=== PATIENT | male | born 2000 | race Two or more races ===

== ENCOUNTER 2018-05-02 13:38 | Day surgery (SDC) | payer OTHER ==
[~2018-05-02 13:38] MED LIST: ACETAMINOPHEN 0 MG/0 ML RTUPB IV ONE; BUPIVACAINE HCL 0.5 % INJ/PF 30 ML SDV ONE; CEFAZOLIN 2 GM/D5W RTU 2 GM/50 ML RTUPB IV PRN; DEXAMETHASONE SOD PHOSPHATE INJ 4 MG/1 ML VIAL ONE; FENTANYL CITRATE INJ/PF 100 MCG/2 ML AMPUL ONE; MIDAZOLAM 2 MG/2 ML INJ ONE; ONDANSETRON HCL INJ/PF 4 MG/2 ML SDV ONE; PROPOFOL INJ 200 MG/20 ML VIAL IV ONE
[2018-05-02] MEDS ORDERED: CEFAZOLIN 2 GM/D5W RTU 2 GM/50 ML RTUPB IV ONE (13:56)
[2018-05-02] MEDS ORDERED: CEFAZOLIN SODIUM 2 GM in DEXTROSE 5%-WATER 100 ML IV PRN (14:03)
[2018-05-02] MEDS ORDERED: ONDANSETRON HCL INJ/PF 4 MG/2 ML SDV ONE (16:15)
[2018-05-02] MEDS ORDERED: MIDAZOLAM 2 MG/2 ML INJ ONE (16:15)
[2018-05-02] MEDS ORDERED: DEXAMETHASONE SOD PHOSPHATE INJ 4 MG/1 ML VIAL ONE (16:15)
[2018-05-02] MEDS ORDERED: HYDROMORPHONE HCL INJ/PF 2 MG/ML AMPULE ONE (16:15)
[2018-05-02] MEDS ORDERED: FENTANYL CITRATE INJ/PF 100 MCG/2 ML AMPUL ONE (16:15)
[2018-05-02] MEDS ORDERED: PROPOFOL INJ 200 MG/20 ML VIAL IV ONE (16:16)
[2018-05-02] MEDS ORDERED: ACETAMINOPHEN 1,000 MG/100 ML RTUPB IV ONE (16:16)
[2018-05-02] MEDS ORDERED: FENTANYL CITRATE INJ/PF 100 MCG/2 ML AMPUL IV PRN ×3 (17:20)
[2018-05-02] MEDS ORDERED: PROMETHAZINE HCL INJ 25 MG/1 ML VIAL IV PRN ×2 (17:20)
[2018-05-02] MEDS ORDERED: ONDANSETRON HCL INJ/PF 4 MG/2 ML SDV IV PRN ×2 (17:20→18:07)
[2018-05-02] MEDS ORDERED: MORPHINE SULFATE 10 MG/ML INJ IV PRN ×2 (17:20→18:07)
[2018-05-02] MEDS ORDERED: OXYCODONE-ACETAMINOPHEN 5-325 MG TABLET PO PRN ×3 (17:20→18:07)
[2018-05-02] MEDS ORDERED: MEPERIDINE HCL/PF INJ 25 MG/1 ML DISP.SYRIN IV PRN (17:20)
[2018-05-02] MEDS ORDERED: DIPHENHYDRAMINE HCL 50 MG/ML VIAL IV PRN (17:20)
--- NOTE | 2018-05-02 18:07 | Discharge Summary ---
Discharge Summary (SDC) - Discharge Final Diagnosis: Right fifth metacarpal neck fracture Right fourth metacarpal base fracture Date of Surgery: 05/02/18 Discharge Date: 05/02/18 Condition: Good Forms: ASU Anesthesia D/C Instruction, Discharge POC-Surgical Service Treatment or Instructions: Schedule Follow Up w/ Dr. Ross Angeles @ [facility] for Surgery to be seen in 10-14 days or as scheduled [place]: [place]: [place]: Ice and elevate Keep splint clean/dry/intact. If your fingers become numb please unwrap the René wrap but leave the splint in place, if the sensation does not return within 30 minutes please return to the emergency department. May begin finger range of motion attempting to make full fist. Please use ibuprofen (Motrin or Advil) 600-800 mg every 8 hours as needed for pain or fever DO NOT TAKE w/ TORADOL may use once TORADOL complete. You may also use acetaminophen (Tylenol) 1000 mg every 4-6 hours as needed for pain or fever. Please be aware that many medications contain acetaminophen, do not exceed a total of 1000 mg of acetaminophen every 6 hours. If ibuprofen and acetaminophen are not sufficient for your pain you may take the Percocet/[place]. Please be aware that the Percocet/[place] does contain Tylenol. Stool softener of choice when on pain medication. USE OF [id number] IBUPROFEN: Ibuprofen (Advil, Nuprin, Medipren, Motrin IB) is a medication for fever and pain control. In addition, it has anti- inflammatory effects which may be beneficial, especially in the treatment of injuries. It's best to take ibuprofen with food. Persons with ulcer disease or allergy to aspirin should notify their physician of this before taking ibuprofen. Ibuprofen can be given every four to six hours, for a total of four doses daily. Age Pain or fever dose Antiinflammatory dose 6-8 yr 200 mg (1 tab) 200 mg (1 tab) 9-11 yr 200 mg (1 tab) 200-400 mg (1-2 tab) 11-14 yr 200-400 mg (1-2 tab) 400 mg (2 tab) 15-adult 400 mg (2 tab) 600 mg (3 tab) ORAL NARCOTIC MEDICATION: You have been given a prescription for pain control. This medication is a narcotic. It's best taken with food, as nausea can result if taken on an empty stomach. Don't operate machinery or drive within six hours of taking this medication. Do not combine this medicine with alcohol, or with any medication which can cause sedation (such as cold tablets or sleeping pills) unless you get permission from the physician. Narcotics tend to cause constipation. If possible, drink plenty of fluids and eat a diet high in fiber and fruits. Please be aware that prescription narcotics also have the potential for abuse. People become addicted to these medications because of the general sense of wellbeing that they induce. This feeling along with a significant reduction in tension, anxiety, and aggression provides a stimulating seductive quality to these drugs. Once your pain is under control, we encourage you to discard your unused narcotics. Prescriptions: Ketorolac Tromethamine [Toradol 10 mg Tablet] 10 mg PO Q8HP PRN #12 tablet PRN Reason: Oxycodone HCl/Acetaminophen [Percocet 5-325 mg Tablet] 1 tab PO Q6 PRN #25 tab PRN Reason: Referrals: ROSS ANGELES DO [ACTIVE STAFF] - 05/15/18 2:10 pm Discharge Diet: As Tolerated Respiratory Treatments at Home: Deep Breathing/Coughing Discharge Activity: No Lifting Over 10 Pounds, No Lifting/Push/Pulling Report the Following to Your Physician Immediately: Fever over 101 Degrees, Unusual Bleeding, Redness, Swelling, Warmth, Increased Soreness
--- NOTE | 2018-05-02 18:12 | Operative Report ---
Operative Report PREOPERATIVE DIAGNOSIS: Right fifth metacarpal neck fracture, fourth metacarpal base fracture POSTOPERATIVE DIAGNOSIS: Same OPERATION: 1. ORIF fifth metacarpal neck fracture. 2. ORIF fourth metacarpal base fracture SURGEON: MISAEL ANGELES ANESTHESIA: GA COMPLICATIONS: None ESTIMATED BLOOD LOSS: Minimal PROCEDURE: Indication for above procedure: 18-year-old male who sustained fractures of his fourth metacarpal base and fifth metacarpal neck. This was treated conservatively with closed reduction and casting originally radiographs demonstrate acceptable alignment however after 2 weeks there was loss of reduction at that point decision was made to proceed with operative intervention. I discussed risks and benefits of the surgical procedure patient verbalized understanding consented for the procedure. Procedure In Detail: Patient was seen and evaluated in the preoperative holding area. The RIGHT upper extremity was initialized and marked. Patient received 2g of Ancef IV for bacterial prophylaxis. Patient was taken back to the operative room where transferred to the operative table and placed under general anesthesia. Once they were adequately anesthetized a nonsterile tourniquet was placed on the upper extremity. A surgical team debriefing was performed ensuring all instrumentation was available, the surgical procedure was discussed with possible concerns reviewed. The upper extremity was prepped with chlorhexidine and alcohol and draped in a sterile fashion. A timeout was done identifying correct patient, procedure and extremity everyone in attendance agree with this and verbalized no concerns. The extremity was exsanguinated the tourniquet was inflated to 250 mmHg. Longitudinal skin incision was made along the MCP joint. The extensor mechanism was then split midline and metacarpal head exposed. With a Jahss maneuver the fifth metacarpal neck was reduced restoring previous height. K wire for a Exos med metacarpal screw was placed through the dorsal third of the metacarpal head past the fracture site. Measuring device confirmed a 40 mm screw. The 4.5 mm x 40 mm Exomed metacarpal screw was placed which provided adequate stability of the fracture site with roman catholic of height no residual angulation. Any peripheral veins were coagulated with bipolar cautery. Wound was copiously irrigated with normal saline. The extensor mechanism was closed with interrupted 3-0 Vicryl suture. Skin was closed with running horizontal mattress 4-0 nylon suture. Longitudinal skin incision was made along the fourth metacarpal base. Blunt dissection was performed. Branches of the dorsal ulnar sensory nerve were identified and retracted. The dorsal interossei was then split and periosteal elevation was performed over the fracture site. Any intervening healing hematoma/callus was excised. The fracture was then reduced under direct visualization. A 1.7 mm interfragmentary screw was placed perpendicular to the fracture. Further stability was then obtained with a 1.7 mm Liseth locking plate. At completion there was near anatomic reduction of the fracture with adequate stability. No evidence of malrotation with forearm squeeze or tenodesis. C-arm fluoroscopy demonstrated acceptable alignment with adequate hardware placement. Wound was then copiously irrigated with normal saline. Interossei fascia was closed interrupted 3-0 Vicryl suture. Skin was closed with running 4-0 nylon horizontal mattress stitch. 20 cc of 0.5% bupivacaine without epinephrine was injected for postoperative pain control. Wound was dressed with Xeroform 4 x 4's and patient was placed in a volar splint with the IP joints free and MP joints immobilized at neutral position. Sponge counts, instrument counts, needle counts were correct. Patient was then awoken from anesthesia. Transferred from the operating room table to the operating room stretcher. There was no intraoperative complications patient tolerated procedure well stable to PACU. Postoperative plan: Patient follow-up the office in 2 weeks at which point he will be fitted for a Exos splint which he may remove for hygiene purposes and range of motion exercises. We will obtain x-rays at follow-up.
--- NOTE | 2018-05-02 18:37 | RADIOLOGY REPORT (SQ) ---
EXAM DESCRIPTION: NO CHG FLUORO; HAND RIGHT 3 VIEWS COMPLETED DATE/TIME: 05/02/2018 6:30 pm REASON FOR STUDY: ORIF 4/5 METACARPALS S62.336D DISP FX OF NK OF 5TH MC BONE, R HAND, 7THD S62.314A DISP FX OF BASE OF FOURTH METACARPAL BONE, RIGHT IRENE COMPARISON: None. FLUOROSCOPY TIME: 46 seconds. 6 images saved to PACS. TECHNIQUE: Intra-operative images acquired during surgical procedure to evaluate progress. NUMBER OF IMAGES: 6 images. LIMITATIONS: None. FINDINGS: Images acquired during surgical fixation. IMPRESSION: IMAGE(S) OBTAINED DURING PROCEDURE. COMMENT: Quality ID [id number]: Final reports for procedures using fluoroscopy that document radiation exp osure indices, or exposure time and number of fluorographic images (if radiation exposure indices are not available) Please consult full operative report of the attending physician for description of the procedure. TECHNICAL DOCUMENTATION: JOB ID: [id number] [employer]- All Rights Reserved Reading location - IP/workstation name: [email or web address]
--- NOTE | 2018-05-02 18:37 | RADIOLOGY REPORT (SQ) ---
EXAM DESCRIPTION: NO CHG FLUORO; HAND RIGHT 3 VIEWS COMPLETED DATE/TIME: 05/02/2018 6:30 pm REASON FOR STUDY: ORIF 4/5 METACARPALS S62.336D DISP FX OF NK OF 5TH MC BONE, R HAND, 7THD S62.314A DISP FX OF BASE OF FOURTH METACARPAL BONE, RIGHT IRENE COMPARISON: None. FLUOROSCOPY TIME: 46 seconds. 6 images saved to PACS. TECHNIQUE: Intra-operative images acquired during surgical procedure to evaluate progress. NUMBER OF IMAGES: 6 images. LIMITATIONS: None. FINDINGS: Images acquired during surgical fixation. IMPRESSION: IMAGE(S) OBTAINED DURING PROCEDURE. COMMENT: Quality ID [id number]: Final reports for procedures using fluoroscopy that document radiation exp osure indices, or exposure time and number of fluorographic images (if radiation exposure indices are not available) Please consult full operative report of the attending physician for description of the procedure. TECHNICAL DOCUMENTATION: JOB ID: [id number] [employer]- All Rights Reserved Reading location - IP/workstation name: [email or web address]
[2018-05-02] MEDS ORDERED: OXYCODONE-ACETAMINOPHEN 5-325 MG TABLET ONE (19:13)
[2018-05-02 20:34] VITALS: BP 133/72
--- NOTE | 2018-05-02 20:50 | EKG REPORT ---
SEVERITY:- ABNORMAL ECG - SINUS RHYTHM INCOMPLETE RIGHT BUNDLE BRANCH BLOCK INFERIOR Q WAVES, PROBABLY NORMAL VARIATION : Confirmed by: Jose Ware 02-May-2018 20:49:28
== END 2018-05-02 20:20 | disposition home or self-care (01) ==
LOC: OROUT 13:38
PROVIDERS: ATTEND Orthopaedic Surgery
DX: S62.314A Displaced fracture of base of fourth metacarpal bone, right hand, initial encounter for closed fracture (principal); S62.336A Displaced fracture of neck of fifth metacarpal bone, right hand, initial encounter for closed fracture; W22.09XA Striking against other stationary object, initial encounter; F17.210 Nicotine dependence, cigarettes, uncomplicated
CPT/HCPCS: 26615 ×2; 73130; 93005; 93010; C1713 ×5; J2250; J3490; J0690 ×2; J1100; J3010; J1170; J2405; J2704; J0131; 01830

== ENCOUNTER 2019-03-28 14:45 | Emergency (ER) | payer OTHER ==
[2019-03-28 15:02] VITALS: BP 130/57
--- NOTE | 2019-03-28 15:11 | ER Document Report ---
HPI - HPI Patient complains to provider of: Right hand pain Time Seen by Provider: 03/28/19 15:09 Onset: Yesterday Onset/Duration: Sudden Quality of pain: [place] Context: Patient presents emergency department with right hand dorsal pain. Reports he was playing football yesterday after wedding and fell onto his right hand. Reports history of fracture in that same hand. Patient is active [place] [facility] [place] not followed up with his [facility] or [place]. Denies all other symptoms such as fever vomiting diarrhea. Associated Symptoms: None Exacerbated by: Movement Relieved by: Denies Similar symptoms previously: Yes Recently seen / treated by doctor: No Past Medical History - General Information source: Patient - Social History Smoking Status: Current Every Day Smoker Cigarette use (# per day): Yes Frequency of alcohol use: Occasional Drug Abuse: None Lives with: Family Family History: None Patient has suicidal ideation: No Patient has homicidal ideation: No - Medical History Medical History: Negative - Past Medical History Cardiac Medical History: Denies: Hx Coronary Artery Disease, Hx Heart Attack, Hx Hypertension Pulmonary Medical History: Denies: Hx Asthma, Hx Bronchitis, Hx COPD, Hx Pneumonia Neurological Medical History: Denies: Hx Cerebrovascular Accident, Hx Seizures Musculoskeletal Medical History: Denies Hx Arthritis Past Surgical History: Reports: Hx Orthopedic Surgery - Immunizations Hx Diphtheria, Pertussis, Tetanus Vaccination: Yes Vertical Provider Document - CONSTITUTIONAL Agree With Documented VS: Yes Exam Limitations: No Limitations General Appearance: WD/WN, No Apparent Distress - INFECTION CONTROL TRAVEL OUTSIDE OF THE [place] 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 Right hand x-ray ordered. 03/28/19 15:54 Hand X-Ray 03/28/19 15:11 IMPRESSION: Status post ORIF of the 4th and 5th metacarpals without evidence of recurrent injury or hardware complication. Mild soft tissue swelling without underlying osseous injury. hand x-ray negative for acute fracture patient instructed on results instructed to rest ice elevate and take Motrin as indicated for pain he verbalized understanding to all instructions. He was also instructed follow-up with his BAS tomorrow. Dictation of this chart was performed using voice recognition software; therefore, there may be some unintended grammatical errors. - Vital Signs Vital signs: Temp Pulse Resp BP Pulse Ox 98.7 F 106 H 18 130/57 H 97 03/28/19 15:01 03/28/19 15:01 03/28/19 15:01 03/28/19 15:01 03/28/19 15:01 - Diagnostic Test Radiology reviewed: Image reviewed, Reports reviewed Discharge - Discharge Clinical Impression: Right hand pain Condition: Stable Disposition: HOME, SELF-CARE Additional Instructions: *You have been evaluated for right hand pain *Take ibuprofen or Tylenol as indicated for pain *Rest/Ice/Elevate your hand *Follow up with your BAS tomorrow for recheck *Return to ED for worsening condition, changes, needs Monitor your blood pressure. Your blood pressure was elevated today. This may be because you were anxious, in pain or because you need medication. It is important to follow up with your primary care provider for full evaluation. Forms: Elevated Blood Pressure
--- NOTE | 2019-03-28 15:45 | RADIOLOGY REPORT (SQ) ---
EXAM DESCRIPTION: HAND RIGHT 3 VIEWS COMPLETED DATE/TIME: 03/28/2019 3:28 pm REASON FOR STUDY: pain hx fx fell yesterday COMPARISON: 05/02/2018 EXAM PARAMETERS: NUMBER OF VIEWS: Three views. TECHNIQUE: AP, lateral and oblique radiographic images acquired of the right hand. LIMITATIONS: None. FINDINGS: MINERALIZATION: Normal. BONES: Status post open reduction, internal fixation of the 4th and 5th metacarpals without evidence of hardware fracture, perihardware lucency or migration. Osseous mineralization and alignment are ot herwise normal. JOINTS: No effusions. SOFT TISSUES: Soft tissue swelling overlies the dorsal hand. OTHER: No other significant finding. IMPRESSION: Status post ORIF of the 4th and 5th metacarpals without evidence of recurrent injury or hardware complication. Mild soft tissue swelling without underlying osseous injury. TECHNICAL DOCUMENTATION: JOB ID: [id number]- All Rights Reserved Reading location - IP/workstation name: [email or web address]
== END 2019-03-28 16:29 | disposition home or self-care (01) ==
LOC: ER 14:45
DX: M79.641 Pain in right hand (principal); M79.89 Other specified soft tissue disorders; W19.XXXA Unspecified fall, initial encounter; Y93.61 Activity, american tackle football; F17.210 Nicotine dependence, cigarettes, uncomplicated; Z98.890 Other specified postprocedural states
CPT/HCPCS: 99283